=== PATIENT | female | born 1980 | race Caucasian/White ===

== ENCOUNTER 2021-01-23 06:08 | Day surgery (SDC) | payer OTHER, SELFPAY ==
[~2021-01-23] VITALS: Ht 165.1 cm; Wt 53.1 kg
[2021-01-23] MEDS ORDERED: CEFAZOLIN 1 GM IVPB PREMIX 50 ML IV ONE (07:00)
[2021-01-23] MEDS ORDERED: BUPIVACAINE /EPINEPHRINE/PF 0.25% 30 ML VIAL INJ ONE (07:32)
[2021-01-23] MEDS ORDERED: WATER FOR IRRIGATION,STERILE 1,000 ML IRRIG.SOLN IR ONE (07:32)
[2021-01-23] MEDS ORDERED: NS 1000 ML IV.SOLN IV ONE (07:32)
[2021-01-23] MEDS ORDERED: LR 500 ML IV.SOLN IV ONE (07:32)
[2021-01-23] MEDS ORDERED: ONDANSETRON HCL 4 MG/2 ML VIAL IVP ONE (07:32)
[2021-01-23] MEDS ORDERED: LIDOCAINE 1% 10 MG/ML, 20 ML MDV IM ONE (07:32)
[2021-01-23] MEDS ORDERED: ISOFLURANE 15 MIN GAS INH ONE (07:32)
[2021-01-23] MEDS ORDERED: MIDAZOLAM HCL 5 MG/5 ML VIAL IVP ONE (07:32)
[2021-01-23] MEDS ORDERED: DEXAMETHASONE SOD PHOSPHATE 4 MG/ML VIAL IVP ONE (07:32)
[2021-01-23] MEDS ORDERED: KETOROLAC TROMETHAMINE 30 MG VIAL IVP ONE (07:32)
[2021-01-23] MEDS ORDERED: ROCURONIUM BROMIDE 10 MG/ML (ZEMURON) IV ONE (07:32)
[2021-01-23] MEDS ORDERED: fentaNYL CITRATE 250 MCG/5 ML AMP IV ONE (07:32)
[2021-01-23] MEDS ORDERED: SUGAMMADEX SODIUM 200 MG/2 ML VIAL IV ONE (07:32)
[2021-01-23] MEDS ORDERED: LR 1,000 ML IV SCH (08:15)
[2021-01-23] MEDS ORDERED: METOCLOPRAMIDE HCL 10 MG/2 ML VIAL IVP PRN (08:15)
[2021-01-23] MEDS ORDERED: MEPERIDINE HCL/PF 25 MG/ML DISP.SYRIN IVP PRN (08:15)
[2021-01-23] MEDS ORDERED: HYDROmorphone 1 INJ. 1 MG/ML CARTRIDGE IVP PRN ×3 (08:15→09:30)
[2021-01-23] MEDS ORDERED: MIDAZOLAM HCL 2 MG/2 ML VIAL (VERSED) IVP PRN (08:15)
[2021-01-23] MEDS ORDERED: ONDANSETRON HCL 4 MG/2 ML VIAL IVP PRN (08:15)
[2021-01-23] MEDS ORDERED: D5/0.45 NS 1,000 ML IV SCH (09:30)
[2021-01-23] MEDS ORDERED: HYDROcodone/ACETAMIN 5-325 MG TAB (NORCO/ VICODIN) PO PRN ×2 (09:30)
[2021-01-23] MEDS: HYDROmorphone 2 MG/ML VIAL ONE (10:05)
[2021-01-23 10:39] VITALS: BP_SYST 116
[2021-01-23] MEDS: ONDANSETRON HCL 4 MG/2 ML VIAL ONE (12:00)
== END 2021-01-23 13:30 | disposition home or self-care (01) ==
LOC: SDS 06:08 → SMU 06:10 → SDS 13:30
PROVIDERS: ATTEND Colon & Rectal Surgery
DX: K80.10 Calculus of gallbladder with chronic cholecystitis without obstruction (principal); Z79.899 Other long term (current) drug therapy
CPT/HCPCS: 47563; 74300; 88304; C1727; C1758; C9399; J0690; J1100; J1170; J1885; J2001; J2250; J2405; J3010; J3490; J7030; J7120; Q9967; 76000